=== PATIENT | male | born 1945 | race African-American/Black ===

== ENCOUNTER 2017-01-30 11:23 | Emergency (ER) | payer MEDICARE ==
[~2017-01-30] VITALS: Ht 177.8 cm; Wt 80.0 kg
[~2017-01-30 11:23] MED LIST: BISA5TAB PO; BRIM0.155 EACH EYE; BRIN1SUS2 EACH EYE; CARD2TAB PO; CLON.5 PO; ENAL20TA81 PO; HYDR100T2 PO; HYDR50TA15 PO; LATA.005%O EACH EYE; TRAZ50TA78 PO; VITA400D PO; VITA500015 PO; XALA0.00 EACH EYE
[2017-01-30 11:26] VITALS: BP 134/74; PULSE 62; RESP 12; TEMP 98.7; O2SAT 100
--- NOTE | 2017-01-30 12:49 | PD ---
HPI . b/l leg edema for 1 year, right > left and now right slightly more edematous than before Chief Complaint: Edema Time Seen by Provider: 12:49 Travel History International Travel<30 days: No Contact w/Intl Traveler<30days: No Traveled to known affect area: No History of Present Illness HPI 71-year-old male with history of hypertension here with acute on chronic edema. Patient tells me that he has had edema for over one year. He follows with his primary care provider and says that his home health nurse told him his right leg looked a little bit more swollen than usual. Patient is here for evaluation. He denies chest pain, shortness of breath, fever, chills, pain, falls, or other issues. He tells me that his doctor has been made aware of this and doesn't really think much of it. He is here only because the home health nurse recommended he come in for evaluation. He admits to eating salty products, but tells me that he limits it. He has no pain. The swelling is not really bothering him. 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 ) Psychiatric: No Reproductive: Yes Respiratory: No Thyroid Disease: No Past Surgical History Abdominal Surgery: Yes (cholecystectomy 10-20-14) AICD: No Arteriovenous Shunt: Yes Body Medical Devices: VENTRICULAR SHUNT HEAD Cholecystectomy: Yes Joint Replacement: No Pacemaker: No Other Surgery: Yes (shunt placed cerebral ) Family History Family Hypercholesterolemia: Yes Social History Alcohol Use: No Tobacco Use: No Substance Use: No Allergies-Medications (Allergen,Severity, Reaction): Uncoded Allergies: silk tape (Allergy, Intermediate, rash, 10/21/14) Reported Meds & Prescriptions Reported Meds & Active Scripts Active Vasotec (Enalapril Maleate) 20 Mg Tab 20 Mg PO DAILY 90 Days Desyrel (Trazodone HCl) 50 Mg Tab 50 Mg PO HS Apresoline (Hydralazine HCl) 50 Mg Tab 50 Mg PO TID Reported Vitamin D (Cholecalciferol) 400 Unit Gregorio 0 PO DAILY UNKNOWN DOSE Brimonidine Tartrate 0.15 % Erinn 0.15 % EACH EYE Xalatan (Latanoprost) 0.005 % Erinn 1 Drop EACH EYE DAILY Hydralazine HCl 100 Mg Tab 50 Mg PO Q8 Dulcolax 5 Mg Ec Tab (Bisacodyl) 5 Mg Tabec 10 Mg PO DAILY PRN Cardura 2 mg (Doxazosin Mesylate) 2 Mg Tab 2 Mg PO BID Klonopin (Clonazepam) 0.5 Mg Tab 0.5 Mg PO BID Vitamin D3 (Cholecalciferol) 5,000 Unit Cap 5,000 Unit PO DAILY Xalatan (Latanoprost) 0.005 % Soln 1 Drop EACH EYE HS Simbrinza (Brinzolamide-Brimonidine Tartr) 1 Ml Bailee 1 Drop EACH EYE BID Review of Systems General / Constitutional: No: Fever Eyes: No: Visual changes HENT: No: Headaches Cardiovascular: Positive: Edema, No: Chest Pain or Discomfort Respiratory: No: Shortness of Breath Gastrointestinal: No: Abdominal Pain Genitourinary: No: Dysuria Musculoskeletal: No: Pain Skin: No Rash Neurologic: No: Weakness Psychiatric: No: Depression Endocrine: No: Polydipsia Hematologic/Lymphatic: No: Easy Bruising Physical Exam Narrative GENERAL: AAO x 3, no acute distress, Well-nourished, well-developed patient. SKIN: Warm and dry. No visible rashes or bruising. HEAD: Normocephalic and atraumatic. EYES: No scleral icterus. No injection or drainage. EOM intact, PERRLA ENT: No nasal drainage noted. Mucous membranes pink. Airway patent. NECK: Supple, trachea midline. No JVD. CARDIOVASCULAR: Regular rate and rhythm without murmurs, gallops, or rubs. RESPIRATORY: Breath sounds equal bilaterally. No accessory muscle use. No rhonchi or rales. GASTROINTESTINAL: Abdomen soft, non-tender, nondistended. EXTREMITIES: Bilateral lower extremity edema right greater than left. 3+ BACK: No obvious deformity. NEURO: CN II-12 intact, PSYCH: AAO x 3, normal affect. Data Data Last Documented VS Vital Signs Date Time Temp Pulse Resp B/P (MAP) Pulse Ox O2 Delivery O2 Flow Rate FiO2 9/19/17 11:26 98.7 62 12 134/74 (94) 100 Orders Orders Us Leg Venous Doppler Bilat (01/30/17 12:54) Chest, Single Ap (01/30/17 ) MDM Medical Decision Making Medical Screen Exam Complete: Yes Emergency Medical Condition: Yes Medical Record Reviewed: Yes Differential Diagnosis Chronic edema, CHF, DVT Narrative Course 71-year-old male here with complaints of acute on chronic edema. On examination he has some edema. He has no other symptoms. He doesn't have any evidence of CHF. I've ordered a chest x-ray and venous Doppler to rule out DVT. If they are within normal limits, patient will be discharged home. Ultimately he will need follow-up with his primary care provider. Of note patient is pre-much confined to a sitting position all day long. I think that gravity is working against him and he may benefit from something such as compression stockings. Last Impressions Lower Extremity Ultrasound 01/30/17 1254 Signed Impressions: Service Date/Time: Monday, January 30, 2017 13:10 - CONCLUSION: 1. No DVT identified. Lokesh Cutler MD Chest X-Ray 01/30/17 0000 Signed Impressions: Service Date/Time: Monday, January 30, 2017 14:08 - CONCLUSION: 1. Small area of atelectasis on the left. No acute abnormality. 2. 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 Lokesh Cutler MD I have discussed the results of the chest x-ray and ultrasound with the patient. I discussed the findings with the patient and that he will need to ultimately follow up with his primary care provider and consider wearing compression stockings. Patient verbalized understanding of instructions, questions were answered, and thanked me for their care. I advised them if their condition worsens, please return to the nearest emergency room for further care. Diagnosis Primary Impression: Edema Qualified Codes: R60.9 - Edema, unspecified Patient Instructions: General Instructions Additional Instructions: Try to wear compression stocking to see if they help your leg swelling. Also try to elevate your legs as much as possible. Try to limit your consumption of salty products. Med/Other Pt SpecificInfo: No Change to Meds Disposition: 01 DISCHARGE HOME Condition: Stable Tiff Mcneal Jan 30, 2017 12:49
--- NOTE | 2017-01-30 14:05 | RADRPT ---
EXAM DATE/TIME: 01/30/2017 13:10 [facility] COMPARISON: No previous studies available for comparison. INDICATIONS : Bilateral lower extremity edema. MEDICAL HISTORY : Hypercholesterolemia. Hypertension. Chronic obstructive pulmonary disease. CVA. Seizures. Anemia. SURGICAL HISTORY : Cholecystectomy. 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 ENCOUNTER: Initial ACUITY: >1 year PAIN SCORE: 0/10 LOCATION: Bilateral leg. TECHNIQUE: Venous ultrasound of the left and right leg was performed from the inguinal ligament to the proximal calf. Real-time, color Doppler and spectral tracing, compression and augmentation techniques were us ed. FINDINGS: RIGHT LEG: There is normal compressibility of the deep venous system from the inguinal region to the proximal ca lf. No echogenic clot is seen in the lumen of the common femoral, femoral, popliteal, and posterior tibial veins. There is a normal response of the venous system to proximal and distal augmentation an d respiration. LEFT LEG: There is normal compressibility of the deep venous system from the inguinal region to the proximal ca lf. No echogenic clot is seen in the lumen of the common femoral, femoral, popliteal, and posterior tibial veins. There is a normal response of the venous system to proximal and distal augmentation an d respiration. CONCLUSION: 1. No DVT identified. Lokesh Cutler MD on January 30, 2017 at 14:03 Board Certified Radiologist. This report was verified electronically.
--- NOTE | 2017-01-30 14:22 | RADRPT ---
EXAM DATE/TIME: 01/30/2017 14:08 [facility] COMPARISON: ABDOMEN KUB ONLY, October 27, 2014, 23:21. INDICATIONS : Short of breath, lower extremity edema MEDICAL HISTORY : Chronic obstructive pulmonary disease. Hypertension CVA, seizure, anemia SURGICAL HISTORY : Cholecystectomy. 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 There is a small area of platelike atelectasis in the left midlung field . The lungs are otherwise clear. The visualized bony structures are grossly intact. CONCLUSION: 1. Small area of atelectasis on the left. No acute abnormality. 2. Incidental note made of the tubing of the patient's TYPEWRITER ASSEMBLER shunt. Lokesh Cutler MD on January 30, 2017 at 14:20 Board Certified Radiologist. This report was verified electronically.
== END 2017-01-30 15:11 | disposition home or self-care (01) ==
LOC: NEPD 11:23
DX: R60.9 Edema, unspecified (principal); I10 Essential (primary) hypertension; E78.00 Pure hypercholesterolemia, unspecified; K75.9 Inflammatory liver disease, unspecified; I69.951 Hemiplegia and hemiparesis following unspecified cerebrovascular disease affecting right dominant side; D64.9 Anemia, unspecified; Z79.899 Other long term (current) drug therapy
CPT/HCPCS: 71010; 93970